=== PATIENT | male | born 1935 | race Caucasian/White ===

== ENCOUNTER 2019-04-04 07:46 | Outpatient (RCR) | payer MEDICARE, BC, SELFPAY | END 2019-04-22 23:59 | disposition home or self-care (01) | LOC: SPT 07:46 | PROVIDERS: Family Provider Family Medicine; PCP Family Medicine; Referring Provider Family Medicine; Visit Provider Family Medicine | DX: H81.10 Benign paroxysmal vertigo, unspecified ear (principal) | CPT/HCPCS: 95992; 97162 ==

== ENCOUNTER 2019-09-22 09:47 | Outpatient (CLI) | payer MEDICARE, BC, SELFPAY ==
--- NOTE | 2019-09-22 09:53 | MR_ITS ---
WS: [id number] MRI BRAIN WITH AND WITHOUT CONTRAST HISTORY: DEPRESSION DUE TO DEMENTIA COMPARISON: None available. TECHNIQUE: Multiplanar imaging performed through the brain with Prohance 16 ml's IV. No acute infarcts are seen. Diez-white matter differentiation is well preserved. Mild atrophy age ellis ropriate. There are a few scattered T2 and FLAIR signal hyperintensities in the periventricular distr ibution. Additional microvascular ischemic changes in the franco bilaterally. No prior infarct. No susceptibility artifacts or prior lacunar infarcts. Ventricles and extra-axial spaces are normal. Clivus and pituitary gland are normal. Visualized posterior fossa and brainstem are also normal. Postcontrast images are negative for masses or vascular malformations. Distal vertebral and the basil ar artery are tortuous and ectatic. No occlusions. Dural venous sinuses are normal. Paranasal sinuses: Well aerated with no significant disease. Mastoid air cells: Normal. Calvarium and scalp: Normal. MR/MR head wo/w con [id number] IMPRESSION: 1. No acute infarct or mass. 2. Mild cerebral atrophy and mild chronic microvascular ischemic disease. Appr opriate for aging.
== END 2019-09-22 09:48 | disposition home or self-care (01) ==
LOC: RADWPI 09:49
PROVIDERS: Family Provider Family Medicine; PCP Family Medicine; Visit Provider Physician Assistant
DX: F02.81 Dementia in other diseases classified elsewhere, unspecified severity, with behavioral disturbance (principal); G31.9 Degenerative disease of nervous system, unspecified; I67.82 Cerebral ischemia
CPT/HCPCS: 70553; A9579

== ENCOUNTER 2019-12-15 18:03 | Emergency (ER) | payer MEDICARE, BC, SELFPAY ==
[2019-12-15] VITALS (8 sets, daily range): BP systolic 166–191; BP diastolic 88–99; PULSE 69–89; RESP 16–18; TEMP 36.6; O2SAT 94–98; BMI 24.3
[2019-12-15 19:41] LABS: Add Urine Microscopic? NO
[2019-12-15 20:09] LABS: Bilirubin Urine Neg (Negative); Blood Urine Neg (Negative); Glucose Urine UA Norm (Normal); Ketones Urine Negative (Negative); Leukocyte Esterase Urine Negative (Negative); Nitrate Urine Negative (Negative); Protein Urine Neg (Negative); Urine Appearance Clear (CLEAR); Urine Color Yellow (Yellow); Urobilinogen Urine Norm (Negative); pH Urine 7 (5-7)
--- NOTE | 2019-12-15 20:35 | CTR_ITS ---
PROCEDURE INFORMATION: Exam: CT Abdomen And Pelvis With Contrast Exam date and time: 12/15/2019 8:58 PM Age: 84 years old Clinical indication: Abdominal pain; Localized; Prior surgery; Surgery type: Gb; Patient HX: Right sided abd pain x 1 week; Additional info: Right flank pain TECHNIQUE: Imaging protocol: Computed tomography of the abdomen and pelvis with intravenous contrast. Radiation optimization: All CT scans at this facility use at least one of these dose optimization techniques: automated exposure control; mA and/or kV adjustment per patient size (includes targeted exams where dose is matched to clinical indication); or iterative reconstruction. Contrast material: OMNI 300; Contrast volume: 95 ml; Contrast route: INTRAVENOUS (IV); COMPARISON: CT abdomen pelvis w con* [id number] 08/28/2018 7:50 PM RADIATION DOSE METRICS: Total DLP (mGy-cm): 577.6 FINDINGS: Lungs: There is subsegmental atelectasis in the lung bases. Liver: The liver is normal. Gallbladder and bile ducts: The gallbladder is absent. There is no intrahepatic or extrahepatic bile duct dilation. Pancreas: The pancreas is unremarkable. Spleen: The spleen is unremarkable. Adrenals: The adrenal glands are unremarkable. Kidneys and ureters: There is a simple cyst in the right kidney. There is no hydronephrosis or stones. There is a dysmorphic low lying left kidney positioned in the pelvis. There is mild left caliectasis without ureteral dilation. No stones. Stomach and bowel: The stomach is unremarkable. The small bowel is nondilated. Unremarkable right upper quadrant ileocolic anastomosis. There is pancolonic diverticulosis. There is no sign of diverticulitis. Appendix: The appendix is absent. Intraperitoneal space: There is no free air or significant intraperitoneal free fluid. Vasculature: There is moderate aortic atherosclerotic disease. Lymph nodes: There is no lymphadenopathy in the retroperitoneum, mesentery, pelvis or inguinal regions. Urinary bladder: The urinary bladder is unremarkable. Reproductive: The prostate and seminal vesicles are unremarkable. Bones/joints: There is a chronic compression fracture at T12. The pelvis and hips are intact. Soft tissues: The abdominal wall is intact. CT/CT abdomen pelvis w con* [id number] IMPRESSION: 1. No acute findings. 2. Incidental findings above. Radiation Dose CTDIVOL = (mGy): DLP = 577.6 (mGy-cm)
[2019-12-15 21:17] LABS: Basophils # 0.1 10^3/uL (0.0-0.1); Basophils % 0.7 %; Eosinophils # 0.1 10^3/uL (0.0-0.8); Eosinophils % 1.5 %; Hematocrit 48.6 % (42.0-52.0); Hemoglobin 15.7 g/dL (11.7-16.6); Lymphocytes # 2.4 10^3/uL (0.8-4.8); Lymphocytes % 27.3 %; Mean Corpuscular HGB Conc 32.3 g/dL (30.0-36.0); Mean Corpuscular Hemoglobin 32.2 pg (28.0-34.0); Mean Corpuscular Volume 99.6 fL (80-94); Mean Platelet Volume 11.1 fL (7.4-10.4); Monocytes # 0.8 10^3/uL (0.2-0.9); Monocytes % 8.7 %; Neutrophils # 5.42 10^3/uL (1.8-7.7); Neutrophils % 61.5 %; Nucleated Red Blood Cells % 0 %; Platelet Count 237 10^3/cmm (130-400); Red Blood Count 4.88 10^6/uL (4.1-5.3); Red Cell Distribution Width 13.2 % (12.1-15.1); White Blood Count 8.8 10^3/uL (4.0-10.0)
[2019-12-15 21:35] LABS: Alanine Aminotransferase 18 U/L (0-41); Albumin Level 4.2 g/dL (3.5-5.2); Alkaline Phosphatase 93 IU/L (40-130); Anion Gap 15.8 (5-19); Aspartate Amino Transferase 22 U/L (0-40); Blood Urea Nitrogen 20 mg/dL (8-23); Calcium 9.5 mg/dL (8.5-10.5); Carbon Dioxide 29 mmol/L (22-29); Chloride 103 mmol/L (98-107); Globulin 2.8 g/dL (1.3-4.6); Glucose 103 mg/dL (65-115); Lipase 23 U/L (13-60); Osmolality Calculated 301 mOsm/kg (285-295); Potassium 3.8 mmol/L (3.5-5.1); Sodium 144 mmol/L (136-145); Total Bilirubin 0.3 mg/dL (0.15-1.2)
[2019-12-15] MEDS: ondansetron 2 mg/ML SDV 2 mL 4 MG IVP (23:06)
[2019-12-15] MEDS: fentaNYL 50 mcg/mL INJ 2mL 75 MCG IVP (23:07)
[2019-12-15] MEDS: oxyCODONE-APAP 5-325 mg Tablet 2 TAB PO (23:22)
[2019-12-15] MEDS: enalaprilat 1.25 mg/mL Inj IVP (23:30)
[2019-12-16] VITALS: BP 161/85; PULSE 76; RESP 16; O2SAT 95
--- NOTE | 2019-12-16 | ED_ITS ---
HPI - Abdominal Pain General: Chief Complaint: Abdominal Pain Stated Complaint: right side pain Time Seen by Provider: 12/15/19 20:15 History of Present Illness: HPI narrative: 84-year-old male complaining of right sided pain to the flank/belly/thigh increasing over the last week. No fever. Woken up twice with nausea and vomiting. He has some chronic urgency, without any change in those symptoms. No change in his urine. No constipation or diarrhea. No evidence of GI bleeding. MD elicited complaint: abdominal pain and flank pain Onset (ago): day(s) Pain Consistency: intermittent Location: R flank Severity: moderate Quality: aching and sharp Radiation: other Migration to: no migration Exacerbating factors: movement Relieving factors: nothing Associated Symptoms: Reports nausea and vomiting; Denies dyspepsia, dysuria and fever(s) Review of Systems Const: Denies: fever(s) ENMT: Denies: odynophagia, post nasal drip or sinus pain Card: Denies: chest pain, palpitations or irregular heart rhythm Resp: Denies: dyspnea, productive cough, non-productive cough or wheezing GI: Reports: nausea and vomiting : Denies: dysuria Musc: Reports: back pain; Denies: neck pain Skin/Breast: Denies: rash, pruritus or erythema Neuro: Denies: headache(s), dizziness or vertigo Psych: Denies: anxiety Physical Exam Const: GENERAL APPEARANCE: well developed ORIENTATION/CONSCIOUSNESS: Yes oriented to person, Yes oriented to place and Yes oriented to time HENMT: COMMON NORMALS: external ears normal and Normal external nose present FACE & SINUS: normal facial exam NOSE: Normal external nose present and No nasal discharge present EXTERNAL EAR: Yes external ears normal Eye: COMMON NORMALS: Equal, round and reactive pupils present, EOMs intact bilaterally and conjunctivae normal EYELID: eyelids normal CONJUNCTIVA: Yes conjunctivae normal PUPIL: Yes Equal, round and reactive pupils present Neck/C-Spine: GENERAL: No tracheal deviation Chest: COMMONS NORMALS: normal inspection of the chest CHEST: No tenderness Resp: COMMON NORMALS: clear to auscultation bilaterally EFFORT & INSPECTION: No tachypneic, No respiratory distress, No retractions, No uses accessory muscles and No tracheal deviation AUSCULTATION: clear to auscultation bilaterally, no rhonchi, no wheezes and lung sounds not diminished Cardio: COMMON NORMALS: regular rate and regular rhythm RATE: regular rate RHYTHM: regular rhythm HEART SOUNDS: no murmurs PERIPHERAL PULSES: radial pulses present GI: INSPECTION: No abdominal distension AUSCULTATION: No Hyperactive bowel sounds present and No Hypoactive bowel sounds present PALPATION: No Guarding due to palpation present (GI) and No Rigid due to palpation PERCUSSION: no dullness to percussion and no tympanic to percussion : BLADDER/KIDNEY EXAM: Yes CVA tenderness on the right (mild) Back/Pelvis: GENERAL BACK: Yes CVA tenderness Neuro: SENSORIUM/ORIENTATION: Yes oriented to person, Yes oriented to place and Yes oriented to time Psych: COMMON NORMALS: mental status grossly normal Skin: COMMON NORMALS: no rashes or lesions noted GENERAL SKIN EXAM: no rashes or lesions noted Course Vital Signs: Vital signs: Vital Signs Temperature 97.9 F 12/15/19 18:15 Pulse Rate 72 12/15/19 23:00 Respiratory Rate 16 12/15/19 23:22 Blood Pressure 166/89 12/15/19 23:00 Pulse Oximetry 94 12/15/19 23:22 MDM - Abdominal Pain MDM Narrative: Medical decision making narrative: 84-year-old male with right- sided pain. Palpation of his right CVA, does not fully recreate his pain. He is not overly tender in the belly. White blood cell count is 8.8. He is afebrile. His electrolytes were not remarkable. CT of the abdomen pelvis does not show any acute findings. It does show a T12 compression fracture which could be the cause of his symptoms, as it is in the distribution dermatome of his symptoms he and his daughter were counseled on his diagnosis. As this appears to be a chronic fracture, TLSO bracing and will not likely improve his symptoms. We discussed therapy versus the possibility of kyphoplasty although t hat may not be a great option either at this point. For now, pain control and follow-up. His blood pressure was quite high during his stay. His daughter notes that his pressure is usually in the 150s systolic and less he is experiencing pain or unease. Spite controlling his pain, his pressure remained elevated. Because of this, some Vasotec was given. They will watch his blood pressure closely twice daily, and report numbers to his physician. They have follow-up secured on [place]. Lab Data: Labs: Lab Results 12/15/19 12/15/19 12/15/19 Range/Units 19:35 20:30 20:30 WBC 8.8 (4.0-10.0) 10^3/ uL RBC 4.88 (4.1-5.3) 10^6/u L Hgb 15.7 (11.7-16.6) g/dL Hct 48.6 (42.0-52.0) % MCV 99.6 H (80-94) fL MCH 32.2 (28.0-34.0) pg MCHC 32.3 (30.0-36.0) g/dL RDW 13.2 (12.1-15.1) % Plt Count 237 (130-400) 10^3/c mm MPV 11.1 H (7.4-10.4) fL Neut % (Auto) 61.5 % Lymph % (Auto) 27.3 % Alcorn % (Auto) 8.7 % Eos % (Auto) 1.5 % Baso % (Auto) 0.7 % Neut # (Auto) 5.42 (1.8-7.7) 10^3/u L Lymph # (Auto) 2.4 (0.8-4.8) 10^3/u L Alcorn # (Auto) 0.8 (0.2-0.9) 10^3/u L Eos # (Auto) 0.1 (0.0-0.8) 10^3/u L Baso # (Auto) 0.1 (0.0-0.1) 10^3/u L Nucleated RBC % (a uto) 0 % Nucleated RBCs # 0.0 /100WBC Sodium 144 (136-145) mmol/L Potassium 3.8 (3.5-5.1) mmol/L Chloride 103 (98-107) mmol/L Carbon Dioxide 29 (22-29) mmol/L Anion Gap 15.8 (5-19) BUN 20 (8-23) mg/dL Creatinine 0.8 (0.7-1.2) mg/dL GFR Calculation Not Reportable Glucose 103 (65-115) mg/dL Calculated Osmolal ity 301 H (285-295) mOsm/k g Calcium 9.5 (8.5-10.5) mg/dL Total Bilirubin 0.3 (0.15-1.2) mg/dL AST 22 (0-40) U/L ALT 18 (0-41) U/L Alkaline Phosphata se 93 (40-130) IU/L Total Protein 7.0 (6.6-8.7) g/dL Albumin 4.2 (3.5-5.2) g/dL Globulin 2.8 (1.3-4.6) g/dL Lipase 23 (13-60) U/L Urine Color Yellow (Yellow) Urine Appearance Clear (CLEAR) Urine pH 7 (5-7) Ur Specific Gravit y 1.010 (1.005-1.030) Urine Protein Neg (Negative) Urine Glucose (UA) Norm (Normal) Urine Ketones Negative (Negative) Urine Blood Neg (Negative) Urine Nitrate Negative (Negative) Urine Bilirubin Neg (Negative) Urine Urobilinogen Norm (Negative) mg/dL Ur Leukocyte Keila ase Negative (Negative) Discharge Plan Discharge Patient Disposition: Home Clinical Impression: Non-traumatic compression fracture of vertebral column Qualifiers: Encounter type: initial encounter Qualified Code(s): M48.50XA - Collapsed vertebra, not elsewhere classified, site unspecified, initial encounter for fracture Condition: Stable Prescriptions: New hydrocodone-acetaminophen 7.5-325 mg tablet 1 tab PO Q6H PRN (Reason: pain) Qty: 14 RF: 0 Discharge Orders: Discharge Order (Routine); Ordered 12/15/19 Ordered By: Modesto Dash Referrals: Saturnino Jauregui MD [Primary Care Provider] - 4-7 days Discharge Diet: Advance as tolerated Discharge Activity: Resume usual activity Patient Instructions: Vertebral Compression Fracture (ED) Activity Restrictions/Additional Instructions: Return for worsening pain despite treatment. Return for fever, loss of bowel or bladder function, other concerning symptoms. Therapy may help. Pain medication as directed and as needed. Follow-up with your doctor. Discharge Date/Time: 12/16/19 00:02 Coding Level of Care Code ED [employer] Specialist for [employer] [facility]
== END 2019-12-16 00:02 | disposition home or self-care (01) ==
PROVIDERS: Emergency Provider Emergency Medicine; PCP Family Medicine
DX: S22.080A Wedge compression fracture of T11-T12 vertebra, initial encounter for closed fracture (principal); X58.XXXA Exposure to other specified factors, initial encounter
CPT/HCPCS: 12345; 74177; 80053; 81003; 83690; 85025; 96374; 96375; 99283; J2405; J3010; J3490; Q9967

== ENCOUNTER 2020-02-01 15:56 | Outpatient (CLI) | payer MEDICARE, BC, SELFPAY ==
--- NOTE | 2020-02-01 16:02 | XR_ITS ---
WS: [id number] SCREENING DEXA SCAN [employer] CLINICAL INFORMATION: OTHER SPECIFIED DISORDERS OF BONE DENSITY AND STRUCTURES COMPARISON: None. FINDINGS: Right femoral neck bone mineral density measures 0.85. This corresponds to a T score -1.7of and Z sco re of -0.3. Left forearm bone mineral density 0.844 with a T score of -1.5 and Z score of -0.2 XR/XR DEXA axial skeleton* [id number] IMPRESSION: Osteopenia Patient's FRAX calculated 10 year probability for major osteoporotic fracture i s 13.1 % and osteoporotic hip fracture is 5.1%.
== END 2020-02-01 15:57 | disposition home or self-care (01) ==
LOC: RADWPI 16:01
PROVIDERS: PCP Family Medicine; Visit Provider Family Medicine
DX: M85.88 Other specified disorders of bone density and structure, other site (principal)
CPT/HCPCS: 77080

== ENCOUNTER 2022-02-05 13:54 | Outpatient (CLI) | payer MEDICARE, BC, SELFPAY ==
--- NOTE | 2022-02-05 14:05 | XR_ITS ---
WS: [id number] SCREENING DEXA SCAN [employer] CLINICAL INFORMATION: OTHER SPECIFIED ORDERS OF BONE DENSITY COMPARISON: 2019 FINDINGS: The LEFT forearm bone mineral density measures 0.802. This corresponds to a T score score of -1.9 and Z score of -0.5. Right femoral neck bone mineral density measures 0.78. This corresponds to a T score -2.2 and Z score of -0.7. XR/XR DEXA axial skeleton* [id number] IMPRESSION: Osteopenia RIGHT femoral neck. Osteopenia LEFT forearm. Patient's FRAX calculated 10 year probability for major osteoporotic fracture i s 14.0 % and osteoporotic hip fracture is 5.5%. Since 2020, bone mineral density in the RIGHT femoral neck has decreased -7.6%. Bone mineral density in the LEFT forearm has decreased -5.0%.
== END 2022-02-05 13:55 | disposition home or self-care (01) ==
LOC: RAD 13:55
PROVIDERS: PCP Family Medicine; Visit Provider Family Medicine
DX: M85.88 Other specified disorders of bone density and structure, other site (principal)
CPT/HCPCS: 77080

== ENCOUNTER 2022-08-26 11:25 | Outpatient (CLI) | payer MEDICARE, BC, SELFPAY ==
--- NOTE | 2022-08-26 11:56 | XR_ITS ---
WS: [id number] RIGHT FOOT: 3 VIEW(S) TECHNIQUE: AP, oblique and lateral. HISTORY: Foreign body to right lateral foot COMPARISON: None available. Numerous high density foreign body objects are scattered throughout the soft tissues of the RIGHT emily t and ankle. Some of these are calcifications while others may be metallic fragments. Severe degenerative changes at the first metatarsophalangeal joint. Amorphous calcifications surround ing the first metatarsal head may be from gout. No definite erosions are identified. Mild soft tissue prominence along the lateral foot adjacent the proximal fifth metatarsal. Calcaneal spur with adjace nt enthesopathy. XR/XR foot RT min 3V* [id number] IMPRESSION: 1. Numerous foreign bodies scattered throughout the soft tissues of the RIGHT foot. 2. Amorphous calcification surrounding the first metatarsal head. Probably rel ated to gout or CPPD. No erosions associated with gout are identified.
== END 2022-08-26 11:26 | disposition home or self-care (01) ==
LOC: RAD 11:28
PROVIDERS: PCP Family Medicine; Visit Provider Nurse Practitioner Family
DX: L57.0 Actinic keratosis (principal); M79.671 Pain in right foot; S80.811A Abrasion, right lower leg, initial encounter; X58.XXXA Exposure to other specified factors, initial encounter; L92.3 Foreign body granuloma of the skin and subcutaneous tissue; D22.5 Melanocytic nevi of trunk; L81.4 Other melanin hyperpigmentation; L85.3 Xerosis cutis; Z71.89 Other specified counseling; D69.2 Other nonthrombocytopenic purpura
CPT/HCPCS: 17000; 17003; 73630; 99214

== ENCOUNTER 2022-09-01 15:02 | Outpatient (CLI) | payer MEDICARE, BC, SELFPAY ==
--- NOTE | 2022-09-01 15:13 | XRR_ITS ---
PROCEDURE INFORMATION: Exam: XR Thoracic Spine Exam date and time: 09/01/2022 3:31 PM Age: 87 years old Clinical indication: Injury or trauma; Fall; Blunt trauma (contusions or hematomas); Injury date: 2 weeks ago; Additional info: Pain in thoracic spine TECHNIQUE: Imaging protocol: Radiologic exam of the thoracic spine. Views: 3 views. COMPARISON: CR XR thoracic spine 3V* [id number] 12/17/2020 1:43 PM FINDINGS: Bones/joints: Diffuse osteopenia noted. Mild scoliosis of the thoracolumbar spine, convex to the left. Old treated L1 compression fracture, with changes of vertebroplasty noted. Mild chronic wedge compression of T12, unchanged. No acute compression fractures are noted. Soft tissues: Paraspinous soft tissues appear unremarkable. XR/XR thoracic spine 3V* [id number] IMPRESSION: 1. Degenerative thoracic spine changes are noted. 2. No acute abnormality of the thoracic spine demonstrated.
--- NOTE | 2022-09-01 15:14 | XRR_ITS ---
PROCEDURE INFORMATION: Exam: XR Left Forearm Exam date and time: 09/01/2022 3:31 PM Age: 87 years old Clinical indication: Injury or trauma; Fall; Blunt trauma (contusions or hematomas); Arm, lower; Left; Injury date: 2 weeks ago; Additional info: Pain in left forearm TECHNIQUE: Imaging protocol: Radiologic exam of the left forearm. Views: 2 views. COMPARISON: No relevant prior studies available. FINDINGS: Bones/joints: No acute fracture or other acute osseous abnormality. Soft tissues: The soft tissues are unremarkable as demonstrated. XR/XR forearm LT 2V [id number] IMPRESSION: No acute fracture demonstrated.
--- NOTE | 2022-09-01 15:14 | XRR_ITS ---
PROCEDURE INFORMATION: Exam: XR Left Scapula Exam date and time: 09/01/2022 3:31 PM Age: 87 years old Clinical indication: Injury or trauma; Fall; Blunt trauma (contusions or hematomas); Shoulder; Left; Injury date: 2 weeks ago; Additional info: Pain in unspecified shoulder TECHNIQUE: Imaging protocol: Radiologic exam of the left scapula. Complete exam. COMPARISON: CR XR thoracic spine 3V* [id number] 12/17/2020 1:43 PM FINDINGS: Bones/joints: No acute fracture or other acute osseous abnormality. Soft tissues: The soft tissues are unremarkable as demonstrated. XR/[place] [id number] IMPRESSION: No acute fracture demonstrated.
--- NOTE | 2022-09-01 15:16 | XRR_ITS ---
PROCEDURE INFORMATION: Exam: XR Left Shoulder Exam date and time: 09/01/2022 3:31 PM Age: 87 years old Clinical indication: Injury or trauma; Fall; Blunt trauma (contusions or hematomas); Shoulder; Bilateral; Additional info: Pain in left shoulder TECHNIQUE: Imaging protocol: Radiologic exam of the left shoulder. Views: 2 or more views. COMPARISON: No relevant prior studies available. FINDINGS: Bones/joints: Glenohumeral joint is intact. No glenohumeral dislocation. Degenerative AC joint changes. No widening of the AC joint. No acute fracture or other acute osseous abnormality. Soft tissues: The soft tissues are unremarkable as demonstrated. XR/XR shoulder LT min 2V* [id number] IMPRESSION: No acute abnormality demonstrated.
--- NOTE | 2022-09-01 15:17 | XRR_ITS ---
PROCEDURE INFORMATION: Exam: XR Left Ribs with PA Chest Exam date and time: 09/01/2022 3:31 PM Age: 87 years old Clinical indication: Injury or trauma; Fall; Rib area, left side; Blunt trauma; Injury date: 2 weeks ago; Additional info: Contusion of left front wall of thorax TECHNIQUE: Imaging protocol: Radiologic exam of the left ribs with PA chest. Views: 3 views COMPARISON: CR XR thoracic spine 3V* [id number] 12/17/2020 1:43 PM FINDINGS: Lungs: Mild atelectasis at the lung bases. No consolidative pulmonary infiltrates. Pleural spaces: No pleural effusion. No pneumothorax. Heart/Mediastinum: Unremarkable. No cardiomegaly. Bones/joints: Diffuse osteopenia noted. No left rib fractures are demonstrated. Soft tissues: The soft tissues are unremarkable as demonstrated. XR/XR ribs LT mn 3V w CXR1V [id number] IMPRESSION: No radiographic evidence of left rib fracture.
== END 2022-09-01 15:03 | disposition home or self-care (01) ==
PROVIDERS: PCP Family Medicine; Visit Provider Family Medicine
DX: M79.632 Pain in left forearm (principal); S20.212A Contusion of left front wall of thorax, initial encounter; W19.XXXA Unspecified fall, initial encounter; M25.512 Pain in left shoulder; M54.6 Pain in thoracic spine; M47.814 Spondylosis without myelopathy or radiculopathy, thoracic region
CPT/HCPCS: 71101; 72072; 73010; 73030; 73090

== ENCOUNTER → 2022-09-15 14:26 | Outpatient (BNVA) | payer MEDICARE, BC, SELFPAY | PROVIDERS: PCP Family Medicine; Visit Provider Podiatrist Foot & Ankle Surgery | DX: L60.3 Nail dystrophy; M67.471 Ganglion, right ankle and foot; Z89.612 Acquired absence of left leg above knee | CPT/HCPCS: 99203 ==

== ENCOUNTER → 2023-03-19 09:20 | Outpatient (BNVA) | payer MEDICARE, BC, SELFPAY | PROVIDERS: PCP Family Medicine; Visit Provider Nurse Practitioner Family | DX: L57.0 Actinic keratosis (principal); Z85.820 Personal history of malignant melanoma of skin; Z85.828 Personal history of other malignant neoplasm of skin; D22.5 Melanocytic nevi of trunk; L81.4 Other melanin hyperpigmentation; L57.8 Other skin changes due to chronic exposure to nonionizing radiation; L85.3 Xerosis cutis; D69.2 Other nonthrombocytopenic purpura | CPT/HCPCS: 17000; 99213 ==

== ENCOUNTER → 2023-09-20 10:24 | Outpatient (BNVA) | payer MEDICARE, BC, SELFPAY | PROVIDERS: PCP Family Medicine; Visit Provider Nurse Practitioner Family | DX: D48.5 Neoplasm of uncertain behavior of skin (principal); L57.0 Actinic keratosis; Z85.820 Personal history of malignant melanoma of skin; Z85.828 Personal history of other malignant neoplasm of skin; D22.5 Melanocytic nevi of trunk; L81.4 Other melanin hyperpigmentation; L57.8 Other skin changes due to chronic exposure to nonionizing radiation; D69.2 Other nonthrombocytopenic purpura; D80.1 Nonfamilial hypogammaglobulinemia; L82.1 Other seborrheic keratosis | CPT/HCPCS: 11102; 17000; 99213 ==

== ENCOUNTER 2024-03-20 16:29 | Emergency (ER) | payer MEDICARE, BC, SELFPAY ==
[2024-03-20 16:51] VITALS: BP 103/61; PULSE 53; RESP 16; TEMP 36.4; O2SAT 98; BMI 22.1
--- NOTE | 2024-03-20 16:56 | ECG_ITS ---
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 Measurements Intervals [place] Rate: 51 P: 0 [place]: 0 QRS: 139 QRSD: 116 T: -40 QT: 433 QTc: 401 Interpretive Statements SUPRAVENTRICULAR BRADYCARDIA INCOMPLETE RIGHT BUNDLE BRANCH BLOCK [90+ ms QRS DURATION, TERMINAL R IN V1/V2, 40+ ms S IN I/aVL/V4/V5/V6] POSSIBLE RIGHT VENTRICULAR HYPERTROPHY [SOME/ALL OF: PROMINENT R IN V1, LATE TRANSITION, RAD, ROSA ISELA, SSS] SEPTAL MYOCARDIAL INFARCTION , PROBABLY OLD [40+ ms Q WAVE IN V1/V2] LATERAL MYOCARDIAL INFARCTION , OF INDETERMINATE AGE [40+ ms Q WAVE AND/OR ST/T ABNORMALITY IN I/aVL/V5/V6] No previous ECG available for comparison Electronically Signed On 03-23-2024 12:40:25 [employer] by Jaron Owen M.D. [email or web address]
--- NOTE | 2024-03-20 22:06 | W.ED.NAVMDI ---
HPI - Nausea/Vomiting/Diarrhea General: Chief complaint: Nausea/Vomiting/Diarrhea Stated complaint: unable to keep fluids/eats dwn & kidney problems Time Seen by Provider: 03/20/24 20:21 History of Present Illness: Patient presents to the ER with nausea vomiting diarrhea for the last couple weeks. Patient's not been able to eat or keep anything down. He did drink 2 boosts today but threw them up. He is also been getting very weak and winded. He did go see his family practice doctor who set him up for a couple scans later on this week. But daughter thinks he has been getting weaker and should not wait till then. Patient does have a history of current pancreatic cancer with a history of bowel resection secondary to colon cancer Related Data Home Medications Medication Instructions Recorded Confirmed lisinopril 10 tab PO 09/15/22 09/15/22 mg-hydrochlorothiazide 12.5 mg tablet sertraline 50 mg tablet ea PO 09/15/22 09/15/22 Previous Rx's Medication Instructions Recorded mupirocin 2 % topical ointment 1 applic topical BID #15 grams 04/22/22 Allergies Allergy/AdvReac Type Severity Reaction Status Date / Time No Known Allergies Allergy Verified 09/15/22 14:38 Review of Systems General: Reports: 10 or more systems reviewed and unremarkable except in HPI and below PFSH ED PFSH: Medical History Prostate cancer History of melanoma History of nonmelanoma skin cancer History of colon cancer Surgical History History of colon resection Social History Smoking and tobacco/nicotine status: former use of tobacco/nicotine Alcohol intake: never Physical Exam Const: COMMON NORMALS: no acute distress, average body habitus, patient oriented x3, no limitations, healthy appearing, alert and well nourished HENMT: COMMON NORMALS: normocephalic, atraumatic, hearing grossly normal bilaterally, external ears normal, Normal external nose present and moist oral mucous membranes HEAD & SCALP: normocephalic and atraumatic NOSE: Normal external nose present EXTERNAL EAR: Yes external ears normal Neck/C-Spine: COMMON NORMALS: no JVD Chest: COMMONS NORMALS: normal inspection of the chest and normal palpation of entire chest wall Resp: COMMON NORMALS: normal respiratory effort, No retractions, No use of accessory muscles and clear to auscultation bilaterally AUSCULTATION: clear to auscultation bilaterally Cardio: COMMON NORMALS: no JVD, regular rate, regular rhythm, S1 normal heart sound present, S2 normal heart sound present, No gallops present (Cardio), No clicks present (Cardio) and No rub (Cardio) RATE: regular rate RHYTHM: regular rhythm HEART SOUNDS: S1 normal heart sound present and S2 normal heart sound present GI: COMMON NORMALS: Normal to inspection, nondistended, normoactive bowel sounds present, Soft to palpation, non-tender, No hepatosplenomegaly present and no masses PALPATION: Yes Soft to palpation and Yes No hepatosplenomegaly present Neuro: COMMON NORMALS: patient oriented x3 SENSORIUM/ORIENTATION: Yes alert Course Vital Signs: Vital signs: Vital Signs Temperature 97.5 F L 03/20/24 16:51 Pulse Rate 48 L 03/21/24 02:53 Respiratory Rate 18 03/21/24 02:53 Blood Pressure 135/65 03/21/24 02:53 Pulse Oximetry 95 03/21/24 02:53 Oxygen Delivery Me thod Room Air 03/20/24 23:43 MDM - Nausea/Vomiting/Diarrhea Medical Decision Making Lab work was obtained as well as CT scan of the abdomen pelvis with contrast, showed mild dehydration with elevated BUN/creatinine of 41 and 1.3, CT scan showed mild sequela of acute uncomplicated sigmoid diverticulitis. Patient was given 1 L bolus normal saline, 400 mg of IV Cipro, [address] Cook was consulted who agreed to place patient in observation for further evaluation treatment. Upon getting a second EKG on patient is noted patient is in third-degree heart block, since we do not have pacemaker capabilities here we will transfer the patient preferably to [facility] because that is where he gets his chemo for his pancreatic cancer. [facility] transfer center was consulted they called Dr. Singh cardiology on-call, he went him to go to [facility] ER to be evaluated. Patient be transferred to [facility] ER. Dr. Wilkinson ER doc consulted and agreed to accept the transfer. When troponin come back elevated approximately 182, ER was called back in [place] in the ER took the troponin and will notify Dr. Villegas Medical Records I reviewed the patient's medical records. Lab Data I reviewed the patient's lab results. 03/21/24 02:59 03/21/24 02:59 Radiology Impressions Abdomen/Pelvis CT 03/20/24 22:32 IMPRESSION: 1. Findings suggest mild sequelae of acute uncomplicated sigmoid diverticulitis. 2. No evidence of bowel obstruction. 3. Fatty liver. 4. Bilateral pleural effusion. 5. Additional chronic findings as above. Chest X-Ray 03/21/24 02:10 IMPRESSION: Left lower lobe heterogenous airspace opacities may represent infectious process. Laboratory Results WBC 10.10 10^3/uL (3.29-11.43) 03/21/24 02:59 RBC 4.13 10^6/uL (3.85-5.65) 03/21/24 02:59 Hgb 13.50 g/dL (11.27-16.99) 03/21/24 02:59 Hct 43.3 % (37-53) 03/21/24 02:59 MCV 104.8 fl (82-101) H 03/21/24 02:59 MCH 32.7 pg (27-33) 03/21/24 02:59 MCHC 31.2 g/dL (30-55) 03/21/24 02:59 RDW 14.7 % (12.1-15.1) 03/21/24 02:59 Plt Count 159 10^3/cmm (157-399) 03/21/24 02:59 MPV 11.1 fL (7.4-10.4) H 03/21/24 02:59 Neut % (Auto) 72.3 % 03/21/24 02:59 Lymph % (Auto) 17.8 % 03/21/24 02:59 Boundary % (Auto) 8.5 % 03/21/24 02:59 Eos % (Auto) 0.6 % 03/21/24 02:59 Baso % (Auto) 0.5 % 03/21/24 02:59 Neut # (Auto) 7.30 10^3/uL (1.8-7.7) 03/21/24 02:59 Lymph # (Auto) 1.8 10^3/uL (0.8-4.8) 03/21/24 02:59 Boundary # (Auto) 0.9 10^3/uL (0.2-0.9) 03/21/24 02:59 Eos # (Auto) 0.1 10^3/uL (0.0-0.8) 03/21/24 02:59 Baso # (Auto) 0.1 10^3/uL (0.0-0.1) 03/21/24 02:59 Nucleated RBC % (auto) 0 % 03/21/24 02:59 Nucleated RBCs # 0.0 /100WBC 03/21/24 02:59 Sodium 141 mmol/L (136-145) 03/21/24 02:59 Potassium 4.5 mmol/L (3.5-5.1) 03/21/24 02:59 Chloride 105 mmol/L (98-107) 03/21/24 02:59 Carbon Dioxide 25 mmol/L (22-29) 03/21/24 02:59 Anion Gap 15.5 (5-19) 03/21/24 02:59 BUN 38 mg/dL (8-23) H 03/21/24 02:59 Creatinine 1.3 mg/dL (0.7-1.2) H 03/21/24 02:59 GFR Calculation Not Reportable 03/21/24 02:59 Glucose 155 mg/dL (65-115) H 03/21/24 02:59 Calculated Osmolality 304 mOsm/kg (285-295) H 03/21/24 02:59 Lactic Acid 1.7 mmol/L (0.5-2.2) 03/20/24 22:56 Calcium 8.9 mg/dL (8.5-10.5) 03/21/24 02:59 Magnesium 2.2 mg/dL (1.7-2.3) 03/21/24 02:59 Total Bilirubin 0.6 mg/dL (0.15-1.2) 03/20/24 22:56 AST 25 U/L (0-40) 03/20/24 22:56 ALT 16 U/L (0-41) 03/20/24 22:56 Alkaline Phosphatase 78 U/L (40-130) 03/20/24 22:56 Troponin T Baseline 183 ng/L (0-15) H* 03/21/24 02:59 Total Protein 6.6 g/dL (6.6-8.7) 03/20/24 22:56 Albumin 4.1 g/dL (3.5-5.2) 03/20/24 22:56 Globulin 2.5 g/dL (1.3-4.6) 03/20/24 22:56 Lipase 22 U/L (13-60) 03/20/24 22:56 TSH 6.28 uIU/mL (0.27-4.20) H 03/21/24 02:59 Urine Color Yellow (Yellow) 03/20/24 23:41 Urine Appearance Clear (CLEAR) 03/20/24 23:41 Urine pH 5.0 (5-7) 03/20/24 23:41 Ur Specific [place] 1.021 (1.005-1.030) 03/20/24 23:41 Urine Protein Trace (Negative) A 03/20/24 23:41 Urine Glucose (UA) Negative (Normal) 03/20/24 23:41 Urine Ketones Negative (Negative) 03/20/24 23:41 Urine Blood Negative (Negative) 03/20/24 23:41 Urine Nitrate Negative (Negative) 03/20/24 23:41 Urine Bilirubin Negative (Negative) 03/20/24 23:41 Urine Urobilinogen 0.2 mg/dL (Negative) 03/20/24 23:41 Ur Leukocyte Esterase Negative (Negative) 03/20/24 23:41 Urine RBC 0-2 /hpf (0-2) 03/20/24 23:41 Urine WBC 0-5 /hpf (0-5) 03/20/24 23:41 Ur Squamous Epith Cells 0-5 /hpf (0-5) 03/20/24 23:41 Amorphous Sediment Not Reportable 03/20/24 23:41 Urine Bacteria None seen /hpf (NONE) 03/20/24 23:41 Hyaline Casts 0.81 /lpf 03/20/24 23:41 All radiology interpretation(s) finalized by discharge Discharge Plan Discharge Patient Disposition: Xfer Short-Term Hosp Clinical Impression: Diverticulitis, Dehydration, Third degree heart block Condition: Stable Referrals: Saturnino Jauregui MD [Primary Care Provider] - Coding Level of Care Code ED Mental Tester for [place]
--- NOTE | 2024-03-20 22:32 | CTR_ITS ---
PROCEDURE INFORMATION: Exam: CT Abdomen And Pelvis With Contrast Exam date and time: 03/20/2024 11:20 PM Age: 88 years old Clinical indication: Abdominal pain; Periumbilical; Additional info: Abdominal pain, possible small bowel obstruction TECHNIQUE: Imaging protocol: Computed tomography of the abdomen and pelvis with contrast. Radiation optimization: All CT scans at this facility use at least one of these dose optimization techniques: automated exposure control; mA and/or kV adjustment per patient size (includes targeted exams where dose is matched to clinical indication); or iterative reconstruction. Contrast material: OMNI 350; Contrast volume: 80 ml; Contrast route: INTRAVENOUS (IV); COMPARISON: CT abdomen pelvis w con* [id number] 12/15/2019 9:44 PM RADIATION DOSE METRICS: Total DLP (mGy-cm): 486.6 FINDINGS: Pleural spaces: Bilateral pleural effusion. Liver: Diffuse fatty infiltration within the liver. No mass. Gallbladder and biliary ducts: Status post cholecystectomy. Pancreas: Unremarkable. No ductal dilation. Spleen: Unremarkable. No mass. Adrenal glands: Unremarkable. No mass. Kidneys and ureters: Stable right renal cyst, no hydronephrosis. Stable appearance of the left pelvic kidney with chronic pelviectasis. Stomach and bowel: Colonic diverticulosis with wall thickening and mild adjacent fat stranding at the sigmoid colon compatible with acute diverticulitis. No perforation. Appendix: No evidence of appendicitis. Intraperitoneal space: No free air. No significant fluid collection. Vasculature: No abdominal aortic aneurysm. Lymph nodes: No enlarged lymph nodes. Urinary bladder: Unremarkable as visualized. Reproductive: Unremarkable as visualized. Bones/joints: Vertebroplasty at L1. No acute bony findings. Soft tissues: No bowel containing hernia. CT/CT abdomen pelvis w con* [id number] IMPRESSION: 1. Findings suggest mild sequelae of acute uncomplicated sigmoid diverticulitis. 2. No evidence of bowel obstruction. 3. Fatty liver. 4. Bilateral pleural effusion. 5. Additional chronic findings as above.
[2024-03-20 23:05] LABS: Basophils % 0.4 %; Eosinophils # 0.1 10^3/uL (0.0-0.8); Eosinophils % 0.6 %; Hematocrit 45.3 % (37-53); Lymphocytes # 1.7 10^3/uL (0.8-4.8); Lymphocytes % 16.8 %; Mean Corpuscular HGB Conc 31.8 g/dL (30-55); Mean Corpuscular Hemoglobin 33.2 pg (27-33); Mean Corpuscular Volume 104.4 fl (82-101); Monocytes % 10.3 %; Neutrophils # 7.05 10^3/uL (1.8-7.7); Neutrophils % 71.6 %; Nucleated Red Blood Cells % 0 %; Platelet Count 173 10^3/cmm (157-399); Red Blood Count 4.34 10^6/uL (3.85-5.65); Red Cell Distribution Width 14.7 % (12.1-15.1); White Blood Count 9.84 10^3/uL (3.29-11.43)
[2024-03-20] MEDS: sodium chloride 0.9% 1,000 ML 999 ML IV (23:17)
[2024-03-20 23:23] LABS: Alanine Aminotransferase 16 U/L (0-41); Albumin Level 4.1 g/dL (3.5-5.2); Alkaline Phosphatase 78 U/L (40-130); Anion Gap 17.4 (5-19); Aspartate Amino Transferase 25 U/L (0-40); Blood Urea Nitrogen 41 mg/dL (8-23); Calcium 9.6 mg/dL (8.5-10.5); Carbon Dioxide 26 mmol/L (22-29); Chloride 104 mmol/L (98-107); Creatinine Clr Calc Pharmacy 40.1744; Globulin 2.5 g/dL (1.3-4.6); Glucose 118 mg/dL (65-115); Lipase 22 U/L (13-60); Magnesium 2.4 mg/dL (1.7-2.3); Osmolality Calculated 307 mOsm/kg (285-295); Potassium 4.4 mmol/L (3.5-5.1); Sodium 143 mmol/L (136-145); Total Bilirubin 0.6 mg/dL (0.15-1.2); Total Protein 6.6 g/dL (6.6-8.7)
[2024-03-20] MEDS: iohexol 350 mg/mL 500 mL Btl (per mL) IV (23:25)
[2024-03-20] MEDS: ondansetron 2 mg/ML SDV 2 mL 4 MG IVP (23:40)
[2024-03-20 23:43] VITALS: BP 127/68; PULSE 52; RESP 14; O2SAT 97
[2024-03-21 00:01] LABS: Bilirubin Urine Negative (Negative); Blood Urine Negative (Negative); Glucose Urine UA Negative (Normal); Ketones Urine Negative (Negative); Leukocyte Esterase Urine Negative (Negative); Nitrate Urine Negative (Negative); Protein Urine Trace (Negative); Specific Gravity, Urine 1.021 (1.005-1.030); Urine Appearance Clear (CLEAR); Urine Color Yellow (Yellow); Urobilinogen Urine 0.2 mg/dL (Negative)
[2024-03-21 00:06] LABS: Add Urine Microscopic? YES; Bacteria Urine None Seen /hpf; Hyaline Casts Urine 0.81 /lpf; RBC Urine 0-2 /hpf (0-2); Squamous Epithelial Cell Urine 0-5 /hpf (0-5); WBC Urine 0-5 /hpf (0-5)
[2024-03-21 00:15] LABS: Lactic Sepsis W/Reflex 1.7 mmol/L (0.5-2.2)
[2024-03-21] MEDS: ciprofloxacin 400 MG/200 ML PREMIX 200 MG IV (00:58)
[2024-03-21] MEDS: metroNIDAZOLE IV 500 MG/100 ML PREMIX 100 MG IV (01:01)
[2024-03-21 01:10] VITALS: BP 112/46; PULSE 45; RESP 18; O2SAT 97
--- NOTE | 2024-03-21 01:31 | PM.HP ---
Providers/Chief Complaint Primary Care Provider: Saturnino Jauregui MD Chief Complaint: unable to keep fluids/eats dwn & kidney problems History of Present Illness Mickey Bosch is a 88 year old male with history of prostate cancer, colectomy secondary to colon cancer, skin melanoma, gets into hormonal treatment for prostate cancer, oncologist is not [facility] with [facility] presenting with chief, nausea vomiting diarrhea. Patient has been feeling sick for last 3 to 4 weeks, he has not noticed any fever, chest pain but endorsing recurrent nausea vomiting and diarrhea. His vomiting episodes got worse in last few days, he has not been able to keep anything down, endorsing dehydration that is what brought him to the hospital. He lives with his daughter. He is not complaining active chest pain abdominal pain at the time of evaluation. Workup in the ER revealed diverticulitis noncomplicated. AYO. Patient is requiring 2 L of oxygen which is new. He is also bradycardic heart rate in low 50s, patient does not take any AV ana blocking agents at home. Patient not a good historian, most of the information provided by his daughter who is at the bedside As per the daughter they were not aware of any bradycardic events in the past, is hemodynamically stable I requested TSH, serial troponin and EKG and chest x-ray EKG showing incomplete bundle branch block Review of Systems Const: Denies: fever(s) Eyes: Denies: change in vision ENMT: Denies: throat pain Card: Denies: chest pain Resp: Denies: dyspnea GI: Reports: nausea and vomiting Medications/Allergies Home Medications Medication Instructions Recorded Confirmed Last Taken Type mupirocin 2 % topical ointment 1 applic topical BID #15 grams 04/22/22 09/15/22 Unknown Rx lisinopril 10 tab PO 09/15/22 09/15/22 Unknown History mg-hydrochlorothiazide 12.5 mg tablet sertraline 50 mg tablet ea PO 09/15/22 09/15/22 Unknown History Allergies Allergy/AdvReac Type Severity Reaction Status Date / Time No Known Allergies Allergy Verified 09/15/22 14:38 PFSH Acute PFSH: Medical History Prostate cancer History of melanoma History of nonmelanoma skin cancer History of colon cancer Surgical History History of colon resection Social History Smoking and tobacco/nicotine status: former use of tobacco/nicotine Alcohol intake: never Vitals/I&O/Wt Last Vital Signs Temp 97.5 F L 03/20/24 16:51 Pulse 45 L 03/21/24 01:10 Resp 18 03/21/24 01:10 BP 112/46 03/21/24 01:10 Pulse Ox 97 03/21/24 01:10 O2 Del Method Room Air 03/20/24 23:43 Weight last 48 hrs Weight 68.039 kg Physical Exam Narrative: Sinus bradycardia Heart rate 47 at the time of evaluation Blood pressure stable Awake and alert GCS 15 Memory impairment Not a good historian Nonfocal neuroexam Left leg prosthesis Right leg without any significant swelling Abdomen no signs of peritonitis Clinically looks dehydrated Pale complexion GCS 15 Data 03/20/24 22:56 03/20/24 22:56 A&P Assessment and plan (1) Diverticulitis: (2) Dehydration: (3) Bradycardia: (4) AYO (acute kidney injury): Plan Diverticulitis No sign of abscess or perforation Start Zosyn Dehydration related to cyclical vomiting Patient has history of prostate cancer currently gets antihormonal therapy, history of colon cancer 20 years ago status post colectomy, as per the daughter no history of metastatic brain lesion Differentials include bowel obstruction, pneumonia, [place], brain mets, bradycardia Start IV fluids Recurrent nausea vomiting Etiology unknown No signs of obstruction on CT abdomen pelvis requested chest x-ray serial troponin and EKG Bradycardia: Incomplete bundle branch block on EKG: Monitor on telemetry: Not on any AV ana blocking agent Serial troponin EKG, As per the daughter they have not been told about any low heart rate in the past If bradycardia worsen he may need cardiology evaluation to evaluate patient for coronary ischemia, check TSH at this point there is no acute indication for pacemaker AYO related to dehydration anticipate improvement with IV fluids hold lisinopril and hydrochlorothiazide DNR/DNI until goals of care discussed with the daughter who is a medical DPOA Brat diet DVT prophylaxis: Lovenox Patient lives with his daughter Daughter is stating that there are considering dementia setting in at this age because of his memory impairment Attestations Medical Necessity Statement*: Anticipating discharge within 48 hours Diagnoses Diverticulitis K57.92 Dehydration E86.0 Bradycardia R00.1 AYO (acute kidney injury) N17.9
[2024-03-21 01:33] VITALS: BP 105/51; PULSE 45; RESP 16; O2SAT 92
--- NOTE | 2024-03-21 02:08 | ECG_ITS ---
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 Measurements Intervals [place] Rate: 46 P: 0 NH: 0 QRS: 152 QRSD: 130 T: 132 QT: 503 QTc: 441 Interpretive Statements MOBITZ TYPE 2 AV BLOCK Compared to ECG 03/20/2024 16:58:14 Incomplete right bundle-branch block no longer present Myocardial infarct finding no longer present Electronically Signed On 03-23-2024 11:31:45 TAR HEATER OPERATOR by Jaron Owen M.D. [id number]
--- NOTE | 2024-03-21 02:10 | XRR_ITS ---
PROCEDURE INFORMATION: Exam: XR Chest Exam date and time: 03/21/2024 2:18 AM Age: 88 years old Clinical indication: Fever; Additional info: Nausea vomiting TECHNIQUE: Imaging protocol: Radiologic exam of the chest. Views: 1 view. COMPARISON: CR XR chest 2V* [id number] 03/13/2024 1:44 PM FINDINGS: Lungs: Left lower lobe heterogenous airspace opacities may represent infectious process. No consolidation. Pleural spaces: Mild blunting of the bilateral costophrenic angles may represent small pleural effusions. Heart/Mediastinum: Unremarkable. No cardiomegaly. Vasculature: Aortic calcifications. Bones/joints: Unremarkable. Intraperitoneal space: Right upper quadrant surgical clips. XR/XR chest 1V portable [id number] IMPRESSION: Left lower lobe heterogenous airspace opacities may represent infectious process.
--- NOTE | 2024-03-21 02:20 | PC.NURSE ---
Attempted to CALL REPORT AT [id number]
[2024-03-21 02:53] VITALS: BP 135/65; PULSE 48; RESP 18; O2SAT 95
[2024-03-21 03:07] LABS: Basophils # 0.1 10^3/uL (0.0-0.1); Basophils % 0.5 %; Eosinophils # 0.1 10^3/uL (0.0-0.8); Eosinophils % 0.6 %; Hematocrit 43.3 % (37-53); Lymphocytes # 1.8 10^3/uL (0.8-4.8); Lymphocytes % 17.8 %; Mean Corpuscular HGB Conc 31.2 g/dL (30-55); Mean Corpuscular Hemoglobin 32.7 pg (27-33); Mean Corpuscular Volume 104.8 fl (82-101); Mean Platelet Volume 11.1 fL (7.4-10.4); Monocytes # 0.9 10^3/uL (0.2-0.9); Monocytes % 8.5 %; Neutrophils % 72.3 %; Nucleated Red Blood Cells % 0 %; Platelet Count 159 10^3/cmm (157-399); Red Blood Count 4.13 10^6/uL (3.85-5.65); Red Cell Distribution Width 14.7 % (12.1-15.1)
[2024-03-21 03:24] LABS: Anion Gap 15.5 (5-19); Blood Urea Nitrogen 38 mg/dL (8-23); Calcium 8.9 mg/dL (8.5-10.5); Carbon Dioxide 25 mmol/L (22-29); Chloride 105 mmol/L (98-107); Creatinine Clr Calc Pharmacy 40.1744; Glucose 155 mg/dL (65-115); Magnesium 2.2 mg/dL (1.7-2.3); Osmolality Calculated 304 mOsm/kg (285-295); Potassium 4.5 mmol/L (3.5-5.1); Sodium 141 mmol/L (136-145)
[2024-03-21 03:28] LABS: Troponin(5th) Baseline 183 ng/L (0-15)
[2024-03-21 03:35] LABS: Thyroid Stimulating Hormone 6.28 uIU/mL (0.27-4.20)
--- NOTE | 2024-03-21 03:52 | PC.NURSE ---
NURSE CONSULTED DR ENGLAND ABOUT MEDICATIONS ORDERED AFTER ADMISSION WAS CANCELLED, PROVIDER VERBALIZED AND GAVE ORDER TO NURSE TO NOT ADMINISTER MEDICATIONS.
[2024-03-21 03:55] VITALS: BP 111/60; PULSE 48; RESP 21; O2SAT 98
[2024-03-21 04:51] VITALS: BP 107/48; PULSE 45; RESP 17; O2SAT 97
--- NOTE | 2024-03-21 17:22 | ECG_ITS ---
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
== END 2024-03-21 04:40 | disposition short-term general hospital (02) ==
PROVIDERS: Emergency Medicine; Emergency Provider Emergency Medicine; PCP Family Medicine; Visit Provider Internal Medicine
DX: K57.92 Diverticulitis of intestine, part unspecified, without perforation or abscess without bleeding (principal); E86.0 Dehydration; I44.2 Atrioventricular block, complete; C61 Malignant neoplasm of prostate; Z85.820 Personal history of malignant melanoma of skin; Z85.828 Personal history of other malignant neoplasm of skin; Z85.038 Personal history of other malignant neoplasm of large intestine; Z87.891 Personal history of nicotine dependence
CPT/HCPCS: 36415; 71045; 74177; 80048; 80053; 81001; 83605; 83690; 83735; 84443; 84484; 85025; 93005; 96365; 96367; 96375; 99285; J0744; J2405; J3490; J7030

== ENCOUNTER 2024-04-24 14:56 | Oncology outpatient (recurring) (ONCR) | payer MEDICARE, BC, SELFPAY ==
[2024-04-24 16:15] LABS: Basophils % 0.5 %; Eosinophils # 0.2 10^3/uL (0.0-0.8); Eosinophils % 1.8 %; Hematocrit 49.1 % (37-53); Lymphocytes # 2.2 10^3/uL (0.8-4.8); Lymphocytes % 26.2 %; Mean Corpuscular HGB Conc 32.4 g/dL (30-55); Mean Corpuscular Hemoglobin 32.4 pg (27-33); Mean Platelet Volume 11.1 fL (7.4-10.4); Monocytes # 0.6 10^3/uL (0.2-0.9); Monocytes % 7.7 %; Neutrophils # 5.28 10^3/uL (1.8-7.7); Neutrophils % 63.4 %; Nucleated Red Blood Cells % 0 %; Platelet Count 200 10^3/cmm (157-399); Red Blood Count 4.91 10^6/uL (3.85-5.65); Red Cell Distribution Width 13.5 % (12.1-15.1); White Blood Count 8.32 10^3/uL (3.29-11.43)
[2024-04-24 16:45] LABS: Alanine Aminotransferase 17 U/L (0-41); Albumin Level 3.8 g/dL (3.5-5.2); Alkaline Phosphatase 71 U/L (40-130); Anion Gap 13.7 (5-19); Aspartate Amino Transferase 36 U/L (0-40); Blood Urea Nitrogen 31 mg/dL (8-23); Calcium 10.2 mg/dL (8.5-10.5); Carbon Dioxide 29 mmol/L (22-29); Chloride 105 mmol/L (98-107); Globulin 3.2 g/dL (1.3-4.6); Glucose 124 mg/dL (65-115); Osmolality Calculated 304 mOsm/kg (285-295); Potassium 4.7 mmol/L (3.5-5.1); Sodium 143 mmol/L (136-145); Testosterone Total 11.6 ng/dL (193-740); Total Bilirubin 0.4 mg/dL (0.15-1.2)
== END 2024-05-22 23:59 | disposition home or self-care (01) ==
PROVIDERS: PCP Family Medicine; Visit Provider Internal Medicine Medical Oncology
DX: C79.51 Secondary malignant neoplasm of bone (principal); Z85.46 Personal history of malignant neoplasm of prostate; R00.1 Bradycardia, unspecified; N17.9 Acute kidney failure, unspecified; L60.3 Nail dystrophy; I82.409 Acute embolism and thrombosis of unspecified deep veins of unspecified lower extremity; E85.9 Amyloidosis, unspecified; Z79.01 Long term (current) use of anticoagulants
CPT/HCPCS: 36415; 80053; 84153; 84403; 85025; 99205

== ENCOUNTER 2024-07-25 13:22 | Oncology outpatient (recurring) (ONCR) | payer MEDICARE, BC, SELFPAY ==
[2024-07-25 13:54] LABS: Basophils % 0.4 %; Eosinophils # 0.1 10^3/uL (0.0-0.8); Eosinophils % 1.1 %; Hematocrit 42.2 % (37-53); Lymphocytes # 2.6 10^3/uL (0.8-4.8); Lymphocytes % 26.1 %; Mean Corpuscular HGB Conc 32.5 g/dL (30-55); Mean Corpuscular Hemoglobin 32.3 pg (27-33); Mean Corpuscular Volume 99.5 fl (82-101); Mean Platelet Volume 10.7 fL (7.4-10.4); Monocytes # 0.8 10^3/uL (0.2-0.9); Monocytes % 7.8 %; Neutrophils # 6.33 10^3/uL (1.8-7.7); Neutrophils % 64.2 %; Nucleated Red Blood Cells % 0 %; Platelet Count 251 10^3/cmm (157-399); Red Blood Count 4.24 10^6/uL (3.85-5.65); Red Cell Distribution Width 14.3 % (12.1-15.1); White Blood Count 9.86 10^3/uL (3.29-11.43)
[2024-07-25 14:58] LABS: Alanine Aminotransferase 16 U/L (0-41); Albumin Level 3.9 g/dL (3.5-5.2); Alkaline Phosphatase 84 U/L (40-130); Aspartate Amino Transferase 24 U/L (0-40); Blood Urea Nitrogen 25 mg/dL (8-23); Calcium 10.1 mg/dL (8.5-10.5); Carbon Dioxide 24 mmol/L (22-29); Chloride 102 mmol/L (98-107); Globulin 3.1 g/dL (1.3-4.6); Glucose 107 mg/dL (65-115); Osmolality Calculated 297 mOsm/kg (285-295); Sodium 141 mmol/L (136-145); Testosterone Total 63.4 ng/dL (193-740); Total Bilirubin 0.5 mg/dL (0.15-1.2)
== END 2024-08-21 23:59 | disposition home or self-care (01) ==
PROVIDERS: PCP Family Medicine; Visit Provider Internal Medicine Medical Oncology
DX: I82.409 Acute embolism and thrombosis of unspecified deep veins of unspecified lower extremity (principal); Z85.830 Personal history of malignant neoplasm of bone; Z79.01 Long term (current) use of anticoagulants; Z87.891 Personal history of nicotine dependence; Z92.21 Personal history of antineoplastic chemotherapy; Z85.46 Personal history of malignant neoplasm of prostate
CPT/HCPCS: 36415; 80053; 84153; 84403; 85025; 99214

== ENCOUNTER → 2024-10-19 14:26 | Outpatient (BNVA) | payer MEDICARE, BC, SELFPAY | PROVIDERS: PCP Family Medicine; Visit Provider Nurse Practitioner Family | DX: D22.5 Melanocytic nevi of trunk (principal); L81.4 Other melanin hyperpigmentation; L57.8 Other skin changes due to chronic exposure to nonionizing radiation; Z85.820 Personal history of malignant melanoma of skin; Z08 Encounter for follow-up examination after completed treatment for malignant neoplasm; Z85.828 Personal history of other malignant neoplasm of skin; D48.5 Neoplasm of uncertain behavior of skin; L57.0 Actinic keratosis | CPT/HCPCS: 11102; 17000; 99213 ==

== ENCOUNTER 2024-12-22 14:00 | Oncology outpatient (recurring) (ONCR) | payer MEDICARE, BC, SELFPAY ==
[2024-11-28 12:13] LABS: Hematocrit 43.9 % (37-53); Hemoglobin 14.10 g/dL (11.27-16.99); Mean Corpuscular HGB Conc 32.1 g/dL (30-55); Mean Corpuscular Hemoglobin 32.4 pg (27-33); Mean Corpuscular Volume 100.9 fl (82-101); Nucleated Red Blood Cells % 0 %; Platelet Count 239 10^3/cmm (157-399); Red Blood Count 4.35 10^6/uL (3.85-5.65); White Blood Count 7.10 10^3/uL (3.29-11.43)
[2024-11-28 12:42] LABS: Alanine Aminotransferase 13 U/L (0-41); Albumin Level 3.9 g/dL (3.5-5.2); Alkaline Phosphatase 76 U/L (40-130); Anion Gap 18.3 (5-19); Aspartate Amino Transferase 23 U/L (0-40); Blood Urea Nitrogen 36 mg/dL (8-23); Calcium 9.7 mg/dL (8.5-10.5); Carbon Dioxide 25 mmol/L (22-29); Chloride 105 mmol/L (98-107); Creatinine Clr Calc Pharmacy 39.3276; Globulin 2.8 g/dL (1.3-4.6); Glucose 120 mg/dL (65-115); Osmolality Calculated 308 mOsm/kg (285-295); Potassium 4.3 mmol/L (3.5-5.1); Prostate Specific Antigen 11.580 ng/mL (0-4); Sodium 144 mmol/L (136-145); Total Protein 6.7 g/dL (6.6-8.7)
[2024-11-28] MEDS: leuprolide 22.5 mg Kit IM (13:29)
[2024-11-29 05:00] LABS: PROTEIN, TOTAL 6.1 g/dL (6.1-8.1)
[2024-11-29 14:33] LABS: KAPPA LIGHT CHAIN, FREE, SERUM 32.0 mg/L (3.3-19.4); KAPPA/LAMBDA LIGHT CHAINS FREE 0.15 (0.26-1.65); LAMBDA LIGHT CHAIN, FREE, SERU 209.7 mg/L (5.7-26.3)
[2024-11-30 09:30] LABS: ALPHA 1 GLOBULIN 0.3 g/dL (0.2-0.3); ALPHA 2 GLOBULIN 0.8 g/dL (0.5-0.9); BETA 1 GLOBULIN 0.4 g/dL (0.4-0.6); BETA 2 GLOBULIN 0.3 g/dL (0.2-0.5)
--- NOTE | 2024-12-22 13:58 | USCV_ITS ---
Mickey Bosch Age: 89 Gender: M : 1935 Exam Date: 12/22/2024 14:11 Ordering Phys: Jeannette Rocha NP Technologist: MANDI Exam Location: [facility] Indication: right dvt discovered at [facility] earlier this year HISTORY: DVT-RIGHT PROCEDURES: Venous duplex imaging was performed in only the right lower extremity. The following venous structures were evaluated: common femoral vein, profunda vein, proximal portion of the greater saphenous vein, superficial femoral vein, and the popliteal vein. In addition, the posterior tibial and peroneal trunk were evaluated. FINDINGS: Normal 2-D Doppler and augmentation and compressibility throughout the lower extremity venous structures. Additional imaging through the proximal calf veins also reveals no thrombus. Limited evaluation of the greater saphenous vein is patent with no thrombus. CONCLUSIONS No DVT right lower extremity. Dr. Cheyanne Boone DO (Electronically Signed) Final Date: 22 December 2024 14:41 S
== END 2024-12-22 23:59 | disposition home or self-care (01) ==
LOC: RAD 12-23 → ONCMED 12-25 09:27
PROVIDERS: PCP Family Medicine; Visit Provider Internal Medicine Medical Oncology
DX: Z53.9 Procedure and treatment not carried out, unspecified reason; R60.0 Localized edema; C61 Malignant neoplasm of prostate; C79.51 Secondary malignant neoplasm of bone; I82.409 Acute embolism and thrombosis of unspecified deep veins of unspecified lower extremity
CPT/HCPCS: 36415; 80053; 83883; 84153; 84155; 84165; 84403; 85025; 86334; 93971; 96402; 99214; J9217

== ENCOUNTER 2025-01-02 13:59 | Oncology outpatient (recurring) (ONCR) | payer MEDICARE, BC, SELFPAY ==
[2025-01-02 15:00] LABS: Hematocrit 45.4 % (37-53); Hemoglobin 14.50 g/dL (11.27-16.99); Mean Corpuscular HGB Conc 31.9 g/dL (30-55); Mean Corpuscular Hemoglobin 32.7 pg (27-33); Mean Corpuscular Volume 102.5 fl (82-101); Nucleated Red Blood Cells % 0 %; Platelet Count 241 10^3/cmm (157-399); Red Blood Count 4.43 10^6/uL (3.85-5.65); White Blood Count 10.50 10^3/uL (3.29-11.43)
[2025-01-02 15:27] LABS: Alanine Aminotransferase 14 U/L (0-41); Albumin Level 4.1 g/dL (3.5-5.2); Alkaline Phosphatase 76 U/L (40-130); Anion Gap 17.2 (5-19); Aspartate Amino Transferase 29 U/L (0-40); Blood Urea Nitrogen 29 mg/dL (8-23); Calcium 9.7 mg/dL (8.5-10.5); Carbon Dioxide 27 mmol/L (22-29); Chloride 106 mmol/L (98-107); Globulin 2.9 g/dL (1.3-4.6); Glucose 123 mg/dL (65-115); Osmolality Calculated 309 mOsm/kg (285-295); Potassium 4.2 mmol/L (3.5-5.1); Prostate Specific Antigen 8.950 ng/mL (0-4); Sodium 146 mmol/L (136-145); Total Protein 7.0 g/dL (6.6-8.7)
== END 2025-01-21 23:59 | disposition home or self-care (01) ==
LOC: ONCMED 14:00
PROVIDERS: Nurse Practitioner; PCP Family Medicine; Visit Provider Internal Medicine Medical Oncology
DX: C61 Malignant neoplasm of prostate (principal); C79.51 Secondary malignant neoplasm of bone; I82.409 Acute embolism and thrombosis of unspecified deep veins of unspecified lower extremity; E85.9 Amyloidosis, unspecified; Z87.891 Personal history of nicotine dependence; Z79.01 Long term (current) use of anticoagulants
CPT/HCPCS: 36415; 80053; 84153; 84403; 85025; 99214

== ENCOUNTER 2025-01-19 15:20 | Emergency (ER) | payer MEDICARE, BC, SELFPAY ==
[2025-01-19 15:22] VITALS: BP 113/75; PULSE 91; RESP 18; TEMP 36.6; O2SAT 97
--- NOTE | 2025-01-19 15:28 | CTR_ITS ---
PROCEDURE INFORMATION: Exam: CT Head Without Contrast Exam date and time: 01/19/2025 4:47 PM Age: 89 years old Clinical indication: Dizziness TECHNIQUE: Imaging protocol: Computed tomography of the head without contrast. Radiation optimization: All CT scans at this facility use at least one of these dose optimization techniques: automated exposure control; mA and/or kV adjustment per patient size (includes targeted exams where dose is matched to clinical indication); or iterative reconstruction. COMPARISON: MR head wo/w con [id number] 09/22/2019 10:04 AM RADIATION DOSE METRICS: Total DLP (mGy-cm): 1103.08 FINDINGS: Brain: No acute intra-axial hemorrhage. No masses. Normal kelley-white matter differentiation. No midline shift or mass effect. Moderate patchy hypodensity in hemispheric white matter bilaterally most likely due to chronic microangiopathy. Cerebral ventricles: No ventriculomegaly. Paranasal sinuses: Visualized sinuses are unremarkable. No fluid levels. Mastoid air cells: Visualized mastoid air cells are well aerated. Bones: Unremarkable. No acute fracture. Soft tissues: Unremarkable. CT/CT head wo con* [id number] IMPRESSION: No acute intracranial abnormality.
--- OUTSIDE RECORDS SUMMARY | 2025-01-19 15:28 | XMS_ITS | Clinical Summary ---
Author Organization [facility] Address [address] [address] Care Team Providers Care Tow Mate Name Role Phone Unavailable Primary Care Provider Unavailabl e Allergies No known active allergies Medications lisinopril (PRINIVIL) 20 mg Oral tablet Take 1 Tab by mouth daily. 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 Gender Identity Not on file Sexual Orientation Not on file Last Filed Vital Signs Vital Sign Reading Time Taken Comments Blood Pressure 150/86 03/16/2011 12:17 PM CLICKING MACHINE OPERATOR Pulse 86 03/06/2011 4:06 PM CLICKING MACHINE OPERATOR Temperature 36.8 C (98.2 F) 03/06/2011 4:06 PM CLICKING MACHINE OPERATOR Respiratory Rate 18 03/06/2011 4:06 PM CLICKING MACHINE OPERATOR Oxygen Saturation - - Inhaled Oxygen Concentration - - Weight 81.6 kg (180 lb) 03/06/2011 4:06 PM CLICKING MACHINE OPERATOR Height 175.3 cm (5' 9 ) 03/06/2011 4:06 PM CLICKING MACHINE OPERATOR Body Mass Index 26.58 03/06/2011 4:06 PM CLICKING MACHINE OPERATOR Plan of Treatment Health Maintenance Due Date Last Done Comments DTAP/TDAP/TD VACCINES (1 - Tdap) 1954 PNEUMOCOCCAL VACCINE 50+ YEARS (1 of 1 - PCV) 03/29/18 88 ZOSTER VACCINE (1 of 2) 1987 RSV VACCINE (60+ or ) (1 - 1-dose 75+ series) 2012 INFLUENZA VACCINE (#1) 2024 Insurance MEDICARE PART A AND B [employer]
--- NOTE | 2025-01-19 15:29 | W.ED.DIZZY ---
HPI - Dizziness General: Chief Complaint: Dizziness Stated Complaint: DIZZINESS Time Seen by Provider: 01/19/25 15:22 History of Present Illness: HPI Narrative: Patient is an 89-year-old gentleman previously on Eliquis, for history of DVT, now discontinued, presents to the emergency room with dizziness. Patient stated this started sometime this morning. He did awake with dizziness. EMS reports he did not have orthostasis. He is status post left below-knee amputation. Patient is unsure why he is dizzy. He is not on diuretic. No sensation changes. No visual changes. This is worse with movement. No central vertigo. No recent fever, chills, sick contact. No dysuria. Associated symptoms: Denies chest pain, chills, headache(s), nausea, nasal congestion, palpitations or vomiting Associated neuro symptoms: Deny numbness in extremities Related Data Home Medications ?Medication ?Instructions ?Recorded ?Confirmed apixaban 5 mg tablet (Eliquis) 5 mg PO BID 04/24/24 01/02/25 pantoprazole 40 mg tablet,delayed 40 mg PO DAILY 04/24/24 01/02/25 release sertraline 50 mg tablet 50 mg PO DAILY 04/24/24 01/02/25 Previous Rx's ?Medication ?Instructions ?Recorded meclizine 25 mg tablet 25 mg PO TID 5 days #15 tabs 01/19/25 methocarbamol 500 mg tablet 500 mg PO Q8H PRN muscle spasm #30 01/19/25 tabs Allergies Allergy/AdvReac Type Severity Reaction Status Date / Time Penicillins Allergy Mild Unknown Verified 01/02/25 14:39 Review of Systems General: Reports: 10 or more systems reviewed and unremarkable except in HPI and below Const: Denies: fever(s) or chills Eyes: Denies: change in vision or blurry vision ENMT: Reports: dry mouth and disequilibrium; Denies: throat pain or nasal congestion Card: Denies: chest pain or palpitations Resp: Denies: dyspnea or non-productive cough GI: Denies: abdominal pain, nausea or vomiting : Reports: urinary incontinence (Chronic); Denies: flank pain, difficulty urinating or dysuria Musc: Denies: neck pain, back pain or extremity pain Neuro: Reports: dizziness and vertigo; Denies: headache(s), numbness in extremities, weakness in extremities, sensory changes, lack of coordination or difficulty walking Psych: Denies: anxiety or depression PFSH ED PFSH: Medical History (Updated 01/19/25 @ 18:22 by GARTH Saucedo) Prostate cancer History of melanoma History of nonmelanoma skin cancer History of colon cancer Surgical History History of colon resection Social History Smoking and tobacco/nicotine status: former use of tobacco/nicotine Alcohol intake: never Physical Exam Const: COMMON NORMALS: no acute distress, average body habitus, patient oriented x3, no limitations, healthy appearing, alert and well nourished HENMT: COMMON NORMALS: normocephalic, atraumatic, hearing grossly normal bilaterally and TM's normal bilaterally HEAD & SCALP: normal to inspection, normocephalic and atraumatic TYMPANIC MEMBRANE: TM's normal bilaterally Neck/C-Spine: COMMON NORMALS: full ROM, no lymphadenopathy, supple, no meningeal signs and no JVD Lymph: LYMPHATIC: no lymphadenopathy noted and no lymphedema noted Chest: COMMONS NORMALS: normal inspection of the chest and normal palpation of entire chest wall Cardio: COMMON NORMALS: no JVD, regular rate and regular rhythm RATE: regular rate RHYTHM: regular rhythm HEART SOUNDS: Murmur heart sound present (3/6 systolic ejection murmur) GI: COMMON NORMALS: Normal to inspection, nondistended, normoactive bowel sounds present, Soft to palpation, non-tender and No hepatosplenomegaly present PALPATION: Yes Soft to palpation and Yes No hepatosplenomegaly present : COMMON NORMALS: Yes no CVA tenderness BLADDER/KIDNEY EXAM: Yes no CVA tenderness Back/Pelvis: COMMON NORMALS: no CVA tenderness and thoraco-lumbar ROM normal THORACIC SPINE/UPPER BACK: Yes pain with ROM, Yes thoracic spinal tenderness T-spine tenderness location: T12 and Yes paraspinal muscle tenderness LUMBAR SPINE/LOWER BACK: Yes normal to inspection, Yes ROM limited, Yes pain with ROM, Yes lumbar spinal tenderness Lumbar spinal tenderness location: L1 and Yes straight leg raise negative bilaterally Extremity: COMMON NORMALS: normal to inspection, full ROM and capillary refill normal Neuro: COMMON NORMALS: patient oriented x3 SENSORIUM/ORIENTATION: Yes alert MENINGEAL SIGNS: Yes no meningeal signs Course Vital Signs: Vital signs: Vital Signs Temperature 97.8 F 01/19/25 15:22 Pulse Rate 88 01/19/25 18:00 Respiratory Rate 18 01/19/25 15:22 Blood Pressure 127/72 01/19/25 18:00 Pulse Oximetry 97 01/19/25 18:00 Oxygen Delivery Me thod Room Air 01/19/25 18:00 MDM - Dizziness Medical Decision Making Patient is a 89-year-old gentleman reports to the emergency room with waking up with dizziness. This is worse with movement. No central vertigo. Patient had some back tenderness over T12. A chronic T12 fracture was noted. I suspect he had musculoskeletal tenderness associated with the previous fracture. Would recommend Tylenol 3 times daily to avoid narcotics with gait instability. Low-dose Robaxin sent to the pharmacy, advised patient to cut in half to avoid sedation side effects and gait instability. He will be referred to Dr. Santiago. As far as his dizziness, he did improve with meclizine which will be sent to the pharmacy. Recommended outpatient physical therapy for Rosanna-Hallpike maneuver. Recommended he go to his primary care physician for order of physical therapy. Medical Records I reviewed the patient's medical records. Lab Data I reviewed the patient's lab results. 01/19/25 15:36 01/19/25 15:[address] 01/19/25 15:28 IMPRESSION: No acute intracranial abnormality. Lumbar Spine CT 01/19/25 17:14 IMPRESSION: No acute lumbar spine fracture. Thoracic Spine CT 01/19/25 17:14 IMPRESSION: No acute thoracic spine fracture. Laboratory Results WBC 9.25 10^3/uL (3.29-11.43) 01/19/25 15:36 RBC 4.24 10^6/uL (3.85-5.65) 01/19/25 15:36 Hgb 14.00 g/dL (11.27-16.99) 01/19/25 15:36 Hct 43.0 % (37-53) 01/19/25 15:36 MCV 101.4 fl (82-101) H 01/19/25 15:36 MCH 33.0 pg (27-33) 01/19/25 15:36 MCHC 32.6 g/dL (30-55) 01/19/25 15:36 RDW 13.8 % (12.1-15.1) 01/19/25 15:36 Plt Count 266 10^3/cmm (157-399) 01/19/25 15:36 MPV 11.2 fL (7.4-10.4) H 01/19/25 15:36 Neut % (Auto) 69.7 % 01/19/25 15:36 Lymph % (Auto) 19.0 % 01/19/25 15:36 [place] % (Auto) 9.2 % 01/19/25 15:36 Eos % (Auto) 1.5 % 01/19/25 15:36 Baso % (Auto) 0.3 % 01/19/25 15:36 Neut # (Auto) 6.44 10^3/uL (1.8-7.7) 01/19/25 15:36 Lymph # (Auto) 1.8 10^3/uL (0.8-4.8) 01/19/25 15:36 [place] # (Auto) 0.9 10^3/uL (0.2-0.9) 01/19/25 15:36 Eos # (Auto) 0.1 10^3/uL (0.0-0.8) 01/19/25 15:36 Baso # (Auto) 0.0 10^3/uL (0.0-0.1) 01/19/25 15:36 Nucleated RBC % (auto) 0 % 01/19/25 15:36 Nucleated RBCs # 0.0 /100WBC 01/19/25 15:36 Sodium 140 mmol/L (136-145) 01/19/25 15:36 Potassium 4.2 mmol/L (3.5-5.1) 01/19/25 15:36 Chloride 104 mmol/L (98-107) 01/19/25 15:36 Carbon Dioxide 25 mmol/L (22-29) 01/19/25 15:36 Anion Gap 15.2 (5-19) 01/19/25 15:36 BUN 38 mg/dL (8-23) H 01/19/25 15:36 Creatinine 1.0 mg/dL (0.7-1.2) 01/19/25 15:36 GFR Calculation Not Reportable 01/19/25 15:36 Glucose 95 mg/dL (65-115) 01/19/25 15:36 Calculated Osmolality 299 mOsm/kg (285-295) H 01/19/25 15:36 Calcium 9.5 mg/dL (8.5-10.5) 01/19/25 15:36 Total Bilirubin 0.5 mg/dL (0.15-1.2) 01/19/25 15:36 AST 32 U/L (0-40) 01/19/25 15:36 ALT 21 U/L (0-41) 01/19/25 15:36 Alkaline Phosphatase 101 U/L (40-130) 01/19/25 15:36 Total Protein 7.0 g/dL (6.6-8.7) 01/19/25 15:36 Albumin 3.5 g/dL (3.5-5.2) 01/19/25 15:36 Globulin 3.5 g/dL (1.3-4.6) 01/19/25 15:36 Urine Color Yellow (Yellow) 01/19/25 15:40 Urine Appearance Clear (CLEAR) 01/19/25 15:40 Urine pH 6.0 (5-7) 01/19/25 15:40 Ur Specific [employer] 1.020 (1.005-1.030) 01/19/25 15:40 Urine Protein Trace (Negative) A 01/19/25 15:40 Urine Glucose (UA) Negative (Normal) 01/19/25 15:40 Urine Ketones Negative (Negative) 01/19/25 15:40 Urine Blood Negative (Negative) 01/19/25 15:40 Urine Nitrate Negative (Negative) 01/19/25 15:40 Urine Bilirubin Negative (Negative) 01/19/25 15:40 Urine Urobilinogen 1.0 mg/dL (Negative) 01/19/25 15:40 Ur Leukocyte Esterase Negative (Negative) 01/19/25 15:40 Urine RBC 3-5 /hpf (0-2) 01/19/25 15:40 Urine WBC 0-5 /hpf (0-5) 01/19/25 15:40 Ur Squamous Epith Cells 0-5 /hpf (0-5) 01/19/25 15:40 Amorphous Sediment Not Reportable 01/19/25 15:40 Urine Bacteria None seen /hpf (NONE) 01/19/25 15:40 Hyaline Casts 0.40 /lpf 01/19/25 15:40 All radiology interpretation(s) finalized by discharge EKG Data EKG 1: Interpretation: Electronic ventricular pacemaker. Incomplete left bundle branch block, left axis Discharge Plan Discharge Patient Disposition: Home Clinical Impression: Closed T12 fracture Qualifiers: Encounter type: initial encounter Fracture morphology: wedge compression Qualified Code(s): S22.080A - Wedge compression fracture of T11-T12 vertebra, initial encounter for closed fracture BPV (benign positional vertigo) Qualifiers: Laterality: right Qualified Code(s): H81.11 - Benign paroxysmal vertigo, right ear Condition: Stable Prescriptions: New methocarbamol 500 mg tablet 500 mg PO Q8H PRN (Reason: muscle spasm) Qty: 30 0RF meclizine 25 mg tablet 25 mg PO TID 5 Days Qty: 15 0RF No Action Eliquis 5 mg tablet 5 mg PO BID pantoprazole 40 mg tablet,delayed release (DR/EC) 40 mg PO DAILY sertraline 50 mg tablet 50 mg PO DAILY Discharge Orders: Discharge ED (Routine); Ordered 01/19/25 Ordered By: Gisselle Eaton Referrals: Diony Santiago DO [Physician, Orthopedics] - 7-10 days Saturnino Jauregui MD [Primary Care Provider, [facility]] Discharge Diet: Usual diet Discharge Activity: Resume usual activity Patient Instructions: Fractures - Compression, Patient Portal & [facility] Instructions Activity Restrictions/Additional Instructions: - Follow-up with Dr. Santiago. Case management has been made a referral for an appointment - Please ice on your low back rehab pain. - Get up and move every 2 hours during the day. -You need to go to your primary care physician for physical therapy order and evaluation outpatient. - Schedule Tylenol [id number] extra strength 3 times a day for pain - Place Lidoderm patch to your back on the affected area, 12 hours on, 12 hours off -Utilize a walker for stability at all times or a cane. - Return to ED with worsening pain, worsening incontinence, loss of sensation, gait instability, fever greater than 100.4 ?F Thank you for choosing [facility] for your healthcare needs today. You have been screened and evaluated and felt safe for discharge. Health conditions do change or evolve sometimes and as such it is important that you follow up with your Primary Doctor to be re checked, 3-5 days is a general good time frame for follow up. You are always welcome to return to the ED for re assessment if your symptoms are worsening or you have new concerns Print Language: Italian Coding Level of Care Code ED Velvet Weaver for [facility] [place]
--- NOTE | 2025-01-19 15:36 | ECG_ITS ---
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 Measurements Intervals [place] Rate: 84 P: 59 [place]: 153 QRS: -73 QRSD: 166 T: 107 QT: 460 QTc: 547 Interpretive Statements ELECTRONIC VENTRICULAR PACEMAKER ATRIAL SENSED VENTRICULAR PACED RHYTHM ABNORMAL RHYTHM ECG Compared to ECG 03/21/2024 03:14:13 VENTRICULAR PACING IS NEW Electronically Signed On 01-20-2025 15:47:18 [employer]YROLL ACCOUNTANT by Valeriy Guzman M.D. [email or web address]
[2025-01-19 15:38] VITALS: BP 113/69; PULSE 86; O2SAT 100
[2025-01-19 15:43] LABS: Hematocrit 43.0 % (37-53); Hemoglobin 14.00 g/dL (11.27-16.99); Mean Corpuscular HGB Conc 32.6 g/dL (30-55); Mean Corpuscular Hemoglobin 33.0 pg (27-33); Mean Corpuscular Volume 101.4 fl (82-101); Nucleated Red Blood Cells % 0 %; Platelet Count 266 10^3/cmm (157-399); Red Blood Count 4.24 10^6/uL (3.85-5.65); White Blood Count 9.25 10^3/uL (3.29-11.43)
--- NOTE | 2025-01-19 15:44 | PC.NURSE ---
Pt states he has had nothing to eat or drink today.
[2025-01-19 15:54] LABS: Glucose Urine UA Negative (Normal); Nitrate Urine Negative (Negative); Specific Gravity, Urine 1.020 (1.005-1.030)
[2025-01-19 15:59] LABS: Add Urine Microscopic? YES
[2025-01-19 16:00] LABS: Alanine Aminotransferase 21 U/L (0-41); Albumin Level 3.5 g/dL (3.5-5.2); Alkaline Phosphatase 101 U/L (40-130); Blood Urea Nitrogen 38 mg/dL (8-23); Calcium 9.5 mg/dL (8.5-10.5); Carbon Dioxide 25 mmol/L (22-29); Chloride 104 mmol/L (98-107); Globulin 3.5 g/dL (1.3-4.6); Glucose 95 mg/dL (65-115); Osmolality Calculated 299 mOsm/kg (285-295); Sodium 140 mmol/L (136-145); Total Protein 7.0 g/dL (6.6-8.7)
[2025-01-19 16:02] LABS: Anion Gap 15.2 (5-19); Aspartate Amino Transferase 32 U/L (0-40); Potassium 4.2 mmol/L (3.5-5.1)
[2025-01-19 16:30] VITALS: BP 105/75; PULSE 90; O2SAT 99
--- NOTE | 2025-01-19 16:45 | PC.NURSE ---
PT has family bedside and family voices concern after pt had a fall and has had increased weakness, not getting out of bed, back pain, was taken off Eliquis 2 weeks ago and has declined since fall.
--- NOTE | 2025-01-19 17:14 | CTR_ITS ---
PROCEDURE INFORMATION: Exam: CT Thoracic Spine Without Contrast Exam date and time: 01/19/2025 5:38 PM Age: 89 years old Clinical indication: Pain in thoracic spine; Additional info: Fall, pain TECHNIQUE: Imaging protocol: Computed tomography of the thoracic spine without contrast. Radiation optimization: All CT scans at this facility use at least one of these dose optimization techniques: automated exposure control; mA and/or kV adjustment per patient size (includes targeted exams where dose is matched to clinical indication); or iterative reconstruction. COMPARISON: CR XR thoracic spine 3V* [id number] 09/01/2022 3:31 PM RADIATION DOSE METRICS: Total DLP (mGy-cm): 620 FINDINGS: Bones/joints: Mild compression fracture of T10 causes about 10-15% vertebral body height loss and is associated with subtle retropulsion of bone into the canal from the posterior lower vertebral body measuring about 3 mm maximum. Adequately patent bony central canal and foramina at T10-11. No other thoracic fractures. Moderate osteopenia. Mild rotary thoracic dextroscoliosis in the upper thoracic spine. Moderate disc degeneration T9-10 with vacuum disc phenomenon. Gas bubbles penetrated through the superior endplate fracture into the anterior superior T10 vertebral body. Redemonstration of moderate chronic compression fracture of T12 status post vertebroplasty with about 3 mm retropulsion of superior posterior T12 vertebral body into the spinal canal appearing chronic. Adequately patent canal and foramina at this level. Adequately patent thoracic spinal canal and foramina otherwise. Soft tissues: Unremarkable. Pleural spaces: Small bilateral pleural effusions, left larger than right. CT/CT thoracic spin wo con* [id number] IMPRESSION: No acute thoracic spine fracture.
--- NOTE | 2025-01-19 17:14 | CTR_ITS ---
PROCEDURE INFORMATION: Exam: CT Lumbar Spine Without Contrast Exam date and time: 01/19/2025 5:38 PM Age: 89 years old Clinical indication: Injury or trauma; Fall; Blunt trauma (contusions or hematomas); Additional info: Fall, injury TECHNIQUE: Imaging protocol: Computed tomography of the lumbar spine without contrast. Radiation optimization: All CT scans at this facility use at least one of these dose optimization techniques: automated exposure control; mA and/or kV adjustment per patient size (includes targeted exams where dose is matched to clinical indication); or iterative reconstruction. COMPARISON: CT abdomen pelvis w con* [id number] 03/20/2024 11:20 PM RADIATION DOSE METRICS: Total DLP (mGy-cm): 391.4 FINDINGS: Bones/joints: Moderate osteopenia. Redemonstration of moderate compression fracture of T12 that has been treated with vertebroplasty. Some of the cement extends into the intervertebral disc space at T11-12. Partial sacralization of L5 on the right. Mild rotary levoscoliosis. Grade 1 degenerative retrolisthesis L1-L2, L2-L3, L3-L4. Grade 1 degenerative anterolisthesis L4-L5. 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 No acute fractures. Mild central spinal stenosis at L2-L3 due to disc bulge and advanced facet arthrosis with moderate ligamentum flavum hypertrophy. Pleural spaces: Bilateral small pleural effusions, left larger than right. Soft tissues: Unremarkable. CT/CT lumbar spine wo con* [id number] IMPRESSION: No acute lumbar spine fracture.
[2025-01-19 17:30] VITALS: BP 102/69; PULSE 87; O2SAT 100
--- NOTE | 2025-01-19 17:33 | PC.NURSE ---
interrogation [facility] pacemaker done, 15mins to send report. If report not sent call .
[2025-01-19 18:00] VITALS: BP 127/72; PULSE 88; O2SAT 97
[2025-01-19 19:09] VITALS: BP 112/65; PULSE 87; O2SAT 98
--- NOTE | 2025-01-22 07:43 | DCPLANNER ---
messaged ortho for er f/u
== END 2025-01-19 19:10 | disposition home or self-care (01) ==
PROVIDERS: Emergency Provider Physician Assistant; PCP Family Medicine
DX: S22.080A Wedge compression fracture of T11-T12 vertebra, initial encounter for closed fracture (principal); H81.11 Benign paroxysmal vertigo, right ear; Z79.01 Long term (current) use of anticoagulants; Z87.891 Personal history of nicotine dependence; Z85.820 Personal history of malignant melanoma of skin; Z85.46 Personal history of malignant neoplasm of prostate; Z85.038 Personal history of other malignant neoplasm of large intestine; Z85.828 Personal history of other malignant neoplasm of skin; X58.XXXA Exposure to other specified factors, initial encounter; Z89.512 Acquired absence of left leg below knee
CPT/HCPCS: 70450; 72128; 72131; 80053; 81001; 85025; 93005; 96360; 96361; 99284; J7120; J8597

== ENCOUNTER → 2025-01-25 15:02 | Outpatient (BNVA) | payer MEDICARE, BC, SELFPAY | PROVIDERS: PCP Family Medicine; Visit Provider Orthopaedic Surgery | DX: S22.080A Wedge compression fracture of T11-T12 vertebra, initial encounter for closed fracture (principal); W19.XXXA Unspecified fall, initial encounter | CPT/HCPCS: 72072; 99203 ==